=== PATIENT | female | born 1965 | race Caucasian/White ===

== ENCOUNTER 2020-07-29 22:37 | Inpatient (IN) ==
[2020-07-29] MEDS ORDERED: SODIUM CHLORIDE 0.9% 1000ML 1,000 ML IV ONE (22:44)
[2020-07-29] MEDS ORDERED: ONDANSETRON INJ 2 MG/ML 2 ML VIAL IV STA (22:55)
--- NOTE | 2020-07-29 22:55 | Emergency Department Note ---
Impression & Plan Acute pancreatitis, Transaminitis ED Provider Note NAME: DANIEL HURLEY AGE: 55 SEX: F : 1965 ARRIVES VIA: Walk-In INFORMANT: patient, ED PROVIDER(S): Rodrigo Roman MD Chief Complaint: Abdominal pain HPI: Patient does present with concern for abdominal pain that she describes in the epigastric region and is sharp with occasional posterior rib pain. Patient states that has been ongoing since 10:00 this morning. Patient states it has been constant. Patient states that she has had some associated chest tightness but denies any fevers chills or shortness of breath. The patient denies any lower extremity edema, DVT or PE. No prior history of heart or lung disease. The patient does occasionally use alcohol and occasionally uses tobacco. None recently. The patient states that she has had a prior appendectomy and cholecystectomy. The patient states that her liver function tests were recently changed did have a recent sonogram that was negative. Patient does not follow with GI at all. The patient denies any nausea vomiting or diaphoresis. Patient states that she had a bowel movement yesterday is passing gas and this is normal for her. The patient denies any blood in the urine or stool. Patient denies any dysuria. ROS: See HPI for pertinent positives and negatives. A total of 10 systems were reviewed and otherwise negative. Past medical history: See below Surgical history: See below Social history: See below Physical Exam: GENERAL: Wearing a mask. NAD, non-toxic. EYE EXAM: Normal conjunctiva. PERRL, no anisocoria and EOM's grossly intact w/o pain. NECK: Supple, no nuchal rigidity, no adenopathy, non-tender. No signs of meningismus. LUNGS: Clear to auscultation. Normal chest wall mechanics. HEART: NSR, no MRG. ABDOMEN: Abdomen soft, upper abdominal pain in the epigastric region, no lower abdominal pain, normo-active bowel sounds, no masses, no rebound or guarding. BACK: No CVA TTP. SKIN: No rashes and no bruising. UPPER EXTREMITIES: Upper extremities are grossly normal. LOWER EXTREMITIES: Grossly normal, no edema. Negative Homans' sign bilaterally. NEURO EXAM: A&O x3, cranial nerves II-XII grossly intact, normal speech, moves all 4 extremities on command w/o issue. Differential diagnoses: Appendicitis, ovarian cyst, ovarian torsion, ectopic , TOA, PID, infections, diverticulitis, UTI, obstruction, mesenteric ischemia, aortic pathology, inflammatory bowel disease, renal colic, PUD, pancreatitis, biliary pathology, hernia, volvulus, constipation, as well as other pathologies. Course: Patient was seen and evaluated the bedside. Full history physical exam was performed. EKG: Indication: Epigastric pain Normal sinus rhythm, rate of 65, normal intervals, left axis deviation. Imaging Studies: Radiology results as stated below per my review in the radiologist's interpretation: CT abdomen pelvis with contrast: Moderate peripancreatic fat stranding. Consistent with acute pancreatitis. No discrete fluid collection. Cholecystectomy with mild intra and extrahepatic biliary dilation may reflect postcholecystectomy changes versus common bile duct obstruction. Subtle density within the distal common bile duct may be stone anamika suni artifact correlate and consider MRCP to assess for choledocholithiasis. No obvious pancreatic ductal dilatation. Colonic diverticulosis. Subcentimeter left renal low-density lesion. Splenic calcified granulomas. Small low-density lesion in the uterine fundus. Possible fibroid. Mild atherosclerotic calcifications of the aorta, iliac arteries. Cardiac monitoring: An order was placed for continuous cardiac monitoring. The monitor shows a rate of 70 with sinus rhythm. MDM: Patient did present with concern for epigastric pain and occasional chest tightness. Blood work is obtained along with EKG troponin CT abdomen pelvis. Patient has had numerous abdominal surgeries but has had a recent bowel movement. No blood in urine or stool. Patient has a normal white count and hemoglobin. The patient's kidney function is unremarkable. The patient does have transaminitis and is sure she had hyperbilirubinemia and. Lipase is elevated. Troponin undetectable. EKG nonischemic. The patient is already had a cholecystectomy. The patient may benefit from MRCP. I did speak with the on-call hospitalist Dr. Waters. The patient was admitted to the medicine service. The patient was ordered additional pain medication maintenance IV fluids and nausea medication. Past Med/Surg History Medical History (Updated 07/30/20 @ 00:59 by Rodrigo Roman MD) Anxiety HTN (hypertension) Surgical History H/O prior ablation treatment History of appendectomy History of back surgery History of cholecystectomy Family History Sister Breast cancer Father Colorectal cancer Diabetes Lung cancer Myocardial infarction Mother Diabetes Hypertension Denies family history of Ovarian cancer Prostate cancer Social History Smoking Status: Current some day smoker Hx Alcohol Use: Yes Hx Substance Use: No Preferred Language: Maori Visual Impairment: No Limitations Hearing Ability: Normal marital status: Single Current Living Situation: Significant Other current occupational status: employed Feels Safe at Home: Yes Childhood Exposure to Second-Hand Smoke: Yes Dental Care, Regularly: Yes Physical Activity Frequency: 3-4 Times per Week Seatbelt Use: always Sunscreen Use: No Allergies Allergies Allergy/AdvReac Type Severity Reaction Status Date / Time aspirin [From Yasmin-[place]] Allergy Mild Rash Verified 07/29/20 23:10 citric acid Allergy Mild Rash Verified 07/29/20 23:10 [From Yasmin-[place]] sodium bicarbonate Allergy Mild Rash Verified 07/29/20 23:10 [From Yasmin-[place]] codeine AdvReac Severe PROJECTILE Verified 07/29/20 23:10 VOMITING sertraline [From Zoloft] AdvReac Intermediate PANIC Verified 07/29/20 23:10 ATTACKS Home Meds Home Medications Medication Instructions Recorded Confirmed cholecalciferol (vitamin D3) 250 mcg PO Q OTHER DAY 07/29/20 07/29/20 [Vitamin D3] conj estrog-medroxyprogest jag 1 tab PO DAILY 07/29/20 07/29/20 [Prempro] multivitamin 1 tab PO DAILY 07/29/20 07/29/20 Previous Rx's Medication Instructions Recorded esomeprazole magnesium 40 mg 40 mg PO DAILY #30 cap 04/29/20 capsule,delayed release hydrochlorothiazide 25 mg tablet 25 mg PO DAILY #30 tab 05/26/20 estradiol 0.045 mg-levonorgestrel 1 patch TRANSDERMAL .COMPLEX #4 ea 06/30/20 0.015 mg/24hr weekly transderm patch Results & Data (ED) Vital Signs Vital Signs - 24 hr 07/29/20 22:39 07/29/20 22:55 07/29/20 23:00 Temperature 36.1 C L Temperature Source Temporal Artery Scan Pulse Rate 70 62 56 L Pulse Rate [Apical] Pulse Rate from SpO2 Sensor 61 57 L Pulse Rhythm [Apical] Pulse Strength [Apical] Respiratory Rate 16 17 18 Respiratory Effort / Characteristics Non-Labored Spontaneous Respiratory Depth Normal Respiratory Pattern Regular Blood Pressure 186/101 H Blood Pressure [Right Arm] Blood Pressure Mean 129 Blood Pressure Mean [Right Arm] Blood Pressure Position Sitting Pulse Oximetry 96 95 96 Oxygen Delivery Method Room Air Room Air Sepsis Recent Fever Within 48 Hours No Sepsis New/Unexplained Change in Mental Status No Sepsis Action Taken by Nursing No Action Required 07/29/20 23:15 07/29/20 23:30 07/29/20 23:32 Temperature Temperature Source Pulse Rate 60 55 L 56 L Pulse Rate [Apical] Pulse Rate from SpO2 Sensor 59 L 54 L 57 L Pulse Rhythm [Apical] Pulse Strength [Apical] Respiratory Rate 18 17 17 Respiratory Effort / Characteristics Respiratory Depth Respiratory Pattern Blood Pressure 163/100 H Blood Pressure [Right Arm] Blood Pressure Mean 121 Blood Pressure Mean [Right Arm] Blood Pressure Position Pulse Oximetry 95 91 95 Oxygen Delivery Method Sepsis Recent Fever Within 48 Hours Sepsis New/Unexplained Change in Mental Status Sepsis Action Taken by Nursing 07/29/20 23:34 07/29/20 23:35 07/29/20 23:45 Temperature Temperature Source Pulse Rate 52 L Pulse Rate [Apical] 56 L Pulse Rate from SpO2 Sensor 52 L Pulse Rhythm [Apical] Regular Pulse Strength [Apical] Normal Respiratory Rate 18 18 Respiratory Effort / Characteristics Non-Labored Spontaneous Respiratory Depth Normal Respiratory Pattern Blood Pressure Blood Pressure [Right Arm] 163/100 H Blood Pressure Mean Blood Pressure Mean [Right Arm] 121 Blood Pressure Position Pulse Oximetry 96 96 91 Oxygen Delivery Method Room Air Room Air Sepsis Recent Fever Within 48 Hours Sepsis New/Unexplained Change in Mental Status Sepsis Action Taken by Nursing 07/30/20 00:13 07/30/20 00:15 Temperature Temperature Source Pulse Rate 56 L 52 L Pulse Rate [Apical] Pulse Rate from SpO2 Sensor 57 L 53 L Pulse Rhythm [Apical] Pulse Strength [Apical] Respiratory Rate 13 15 Respiratory Effort / Characteristics Respiratory Depth Respiratory Pattern Blood Pressure 180/110 H Blood Pressure [Right Arm] Blood Pressure Mean 133 Blood Pressure Mean [Right Arm] Blood Pressure Position Pulse Oximetry 98 96 Oxygen Delivery Method Sepsis Recent Fever Within 48 Hours Sepsis New/Unexplained Change in Mental Status Sepsis Action Taken by Detention Medications Current Medication List: was personally reviewed by me Laboratory Data Attestation: I reviewed the patient's lab results. Result diagrams: 07/29/20 22:57 07/29/20 22:57 Lab Results 07/29/20 07/29/20 07/29/20 Range/Units 22:57 22:57 23:04 WBC 8.90 (4.8-10.8) K/uL RBC 4.51 (4.2-5.4) M/uL Hgb 15.5 (12.0-16.0) g/dL POC Hgb 16.3 H (12.0-16.0) g/dl Hct 43.8 (37-47) % POC Hct 48 H (37-47) % MCV 97.1 (80-100) fL MCH 34.4 H (25-34) pg MCHC 35.4 (32-36) g/dL RDW Std Deviation 47.3 H (36.4-46.3) fL RDW Coeff of [place] 13.2 (11.5-14.5) % Plt Count 348 (130-400) K/uL MPV 10.0 (7.4-10.4) fL Immature Gran % (Auto) 0.2 % Neut % (Auto) 72.5 % Lymph % (Auto) 18.4 % [place] % (Auto) 7.6 % Eos % (Auto) 1.0 % Baso % (Auto) 0.3 % Neut # (Auto) 6.44 (1.4-6.5) K/uL Lymph # (Auto) 1.64 (1.2-3.4) K/uL [place] # (Auto) 0.68 H (0.11-0.59) K/uL Eos # (Auto) 0.09 (0-0.5) K/uL Baso # (Auto) 0.03 (0-0.2) K/uL Immature Gran # (Auto) 0.02 (0.00-0.02) K/uL POC Sodium 136 (135-144) mmol/L Sodium 136 (136-145) mmol/L POC Potassium 4.1 (3.3-5.0) mmol/L Potassium 4.1 (3.5-5.1) mmol/L POC Chloride 102 (101-112) mmol/L Chloride 104 (98-107) mmol/L Carbon Dioxide 24 (21-32) mmol/L POC Total CO2 24 (24-31) mmol/L Anion Gap 7.0 (3-11) POC Anion Gap 14.0 L (16-25) mmol/L POC BUN 19 H (7-18) mg/dl BUN 18 (7-18) mg/dl Creatinine 1.05 (0.6-1.2) mg/dl POC Creatinine 0.9 (0.6-1.3) mg/dl Est Cr Clr Drug Dosing 58.6 ml/min Est GFR ( Amer) 69.2 Est GFR (Non-Af Amer) 59.7 BUN/Creatinine Ratio 17.0 (10-20) Glucose 121 H (70-99) mg/dl POC Glucose (other) 128 H (70-99) mg/dl Calcium 9.4 (8.5-10.1) mg/dl POC Ioniz Calcium Abigail 1.20 (1.12-1.32) mmol/l Total Bilirubin 3.4 H (0.2-1) mg/dl AST 488 H (15-37) U/L ALT 789 H (12-78) U/L Alkaline Phosphatase 504 H (45-117) U/L Troponin I < 0.015 (0-0.045) ng/ml Total Protein 7.5 (6.4-8.2) gm/dl Albumin 3.7 (3.4-5.0) gm/dl Globulin 3.8 (2.5-4.0) gm/dl Albumin/Globulin Ratio 1.0 (0.9-2) Lipase 52474 H (73-393) U/L Administered Medications Discontinued Medications Fentanyl Citrate (Fentanyl Citrate 100 Mcg/2 Ml Vial) 50 mcg IV NOW STA Stop: 07/29/20 22:57 Last Admin: 07/29/20 23:39 Dose: 50 mcg Documented by: [id number] Sodium Chloride (Nss 1000ml) 1,000 mls @ 999 mls/hr IV .Q1H1M ONE Stop: 07/29/20 23:44 Last Infusion: 07/30/20 00:36 Dose: 0 mls/hr Documented by: [id number] Admin: 07/29/20 23:41 Dose: 999 mls/hr Documented by: [id number] Ioversol (Ioversol 100ml) 90 ml IV ONCE ONE Stop: 07/30/20 00:00 Last Admin: 07/29/20 23:59 Dose: 90 ml Documented by: [id number] Ondansetron HCl (Ondansetron Inj 2 Mg/Ml 2 Ml Vial) 4 mg IV NOW STA Stop: 07/29/20 22:56 Last Admin: 07/29/20 23:40 Dose: 4 mg Documented by: [id number] Discharge Plan Visit Data Chief Complaint: Chest Pain Stated Complaint: abd pain, chest pain ED Provider: Rodrigo Roman Discharge Problem: Acute pancreatitis, Transaminitis Forms Stand Alone Forms: [facility] [employer] Prescriptions Prescriptions: No Action hydrochlorothiazide 25 mg tablet 25 mg PO DAILY Qty: 30 RF: 5 [place] Pro 0.045-0.015 mg/24 hr patch weekly 1 patch transdermal .COMPLEX Qty: 4 RF: 12 esomeprazole magnesium [Nexium] 40 mg capsule,delayed release(DR/EC) 40 mg PO DAILY Qty: 30 RF: 2 multivitamin Tablet 1 tab PO DAILY RF: 0 Prempro 0.625-2.5 mg tablet 1 tab PO DAILY RF: 0 cholecalciferol (vitamin D3) [Vitamin D3] 125 mcg (5,000 unit) Tablet 250 mcg PO Q OTHER DAY RF: 0 Discharge Problem: Acute pancreatitis Qualifiers: Pancreatitis type: unspecified pancreatitis type Acute pancreatitis comp lication: unspecified Qualified Code(s): K85.90 - Acute pancreatitis without necrosis or infection, unspecified
[2020-07-29] MEDS ORDERED: fentaNYL citrate 100 MCG/2 ML VIAL IV STA (22:56)
[2020-07-29 23:07] LABS: Basophils # (auto) 0.03 K/uL (0-0.2); Basophils % (auto) 0.3 %; Eosinophils # (auto) 0.09 K/uL (0-0.5); Hematocrit (blood only) 43.8 % (37-47); Hemoglobin 15.5 g/dL (12.0-16.0); Immature Granulocytes # (auto) 0.02 K/uL (0.00-0.02); Immature Granulocytes % (auto) 0.2 %; Lymphocytes # (auto) 1.64 K/uL (1.2-3.4); Lymphocytes % (auto) 18.4 %; Mean Corpuscular Hemoglobin 34.4 pg (25-34); Mean Corpuscular Hgb Conc 35.4 g/dL (32-36); Mean Corpuscular Volume 97.1 fL (80-100); Monocytes # (auto) 0.68 K/uL (0.11-0.59); Monocytes % (auto) 7.6 %; Neutrophils # (auto) 6.44 K/uL (1.4-6.5); Neutrophils % (auto) 72.5 %; Platelet Count 348 K/uL (130-400); RDW Coefficient of Variation 13.2 % (11.5-14.5); RDW Standard Deviation 47.3 fL (36.4-46.3); Red Blood Count 4.51 M/uL (4.2-5.4)
[2020-07-29 23:17] LABS: iSTAT Creatinine 0.9 mg/dl (0.6-1.3); iSTAT Hemoglobin 16.3 g/dl (12.0-16.0); iSTAT Ionized Calcium 1.2 mmol/l (1.12-1.32); iSTAT Potassium 4.1 mmol/L (3.3-5.0)
[2020-07-29 23:36] LABS: Alanine Aminotransferase 789 U/L (12-78); Albumin Level 3.7 gm/dl (3.4-5.0); Aspartate Aminotransferase 488 U/L (15-37); Blood Urea Nitrogen 18 mg/dl (7-18); Calcium 9.4 mg/dl (8.5-10.1); Carbon Dioxide 24 mmol/L (21-32); Chloride 104 mmol/L (98-107); Creatinine Clr Calc Pharmacy 58.6 ml/min; Est GFR (African American) 69.2; Est GFR (Non-African American) 59.7; Glucose 121 mg/dl (70-99); Potassium 4.1 mmol/L (3.5-5.1); Sodium 136 mmol/L (136-145)
[2020-07-29 23:51] LABS: Alkaline Phosphatase 504 U/L (45-117); Bilirubin,Total 3.4 mg/dl (0.2-1); Globulin 3.8 gm/dl (2.5-4.0); Total Protein 7.5 gm/dl (6.4-8.2); Troponin I < 0.015 ng/ml (0-0.045)
[2020-07-29] MEDS ORDERED: OPTIRAY 320 100ml IV ONE (23:59)
[2020-07-30 00:26] LABS: Lipase 38874 U/L (73-393)
[2020-07-30] MEDS ORDERED: ONDANSETRON INJ 2 MG/ML 2 ML VIAL IV STA (00:33)
[2020-07-30] MEDS ORDERED: fentaNYL citrate 100 MCG/2 ML VIAL IV STA (00:33)
[2020-07-30] MEDS: SODIUM CHLORIDE 0.9% 1000ML 1,000 ML IV SCH ×6 (00:51→19:53)
[2020-07-30 01:51] LABS: Appearance Urine Clear (Clear); Bacteria Urine Automated 4+ (Negative); Bilirubin Urine Negative (Negative); Blood Urine Negative (Negative); Cast Urine Automated 0 /lpf (0-5); Color Urine Dark Yellow; Epithelial Cell Urine Auto 20-30 /lpf (0-5); Glucose Urine UA Negative (Negative); Ketones Urine Negative (Negative); Leukocyte Esterase Urine Negative (Negative); Nitrite Urine Positive (Negative); Protein Urine Negative (Negative); RBC Urine Automated 0-4 /hpf (0-4); Specific Gravity Urine 1.015 (1.000-1.030); Urobilinogen Urine Negative (Negative); pH Urine 5.5 (4.5-7.5)
[2020-07-30] MEDS ORDERED: HYDROmorphone INJ 0.5 MG/0.5 ML SYR IV STA (02:15)
--- NOTE | 2020-07-30 02:49 | History & Physical Report ---
Date of Service July 30, 2020 Assessment & Plan Admission and Anticipated Discharge Date Admission Date: 55 yo F w/ past medical hx. of HTN, and s/p cholecystectomy presents with severe upper abdominal pain found to have acute pancreatitis w/ lipase of 38,874 likely 2/2 gallstone with findings corroborating this on CT imaging and liver enzyme elevated to AST 488 ALT 789 along with bilirubin. Afebrile, no white count, no signs of complications on CT. Alcohol could be the cause although given patients reported intake this seems less likely. - admit med/sug - tele - NPO, continue fluid at 125/hr - Ceftriaxone 1g Q24H started given obstruction for GI source - MRCP ordered - GI consulted for potential ERCP - Dilaudid for pain control w/ 0.5 Q 30min for severe pain - ordered lipid profile HTN, elevated as high as systolic 200's in ED likely 2/2 pain - continue home HCTZ - control pain as above Elevated glucose with no prior history of DM - AM A1c Code: full COVID: negative 07/30 Diet: NPO DVT: SCD's given potential procedure tomorrow History of Present Illness Chief Complaint: abdominal pain Primary Care Provider: Chelsea Montelongo MD Ludy Solano is a 55-year-old female presenting with one day of severe abdominal pain. She was previously healthy and at 10AM this morning she developed constant progressively worsening 8-10/10 central abdominal pain that radiated to the back. The pain is described as gas like with spasms in her chest. she finally decided to come into the hospital when it was not improving and seemed to worsen when she tried to lay down for bed. She did vomit once at 8:30 PM prior to coming to the ER. She has previously had her gallbladder removed. No recent illness. No recent travel. No prior trauma. No pet scorpions, she has a dog and a horse at home. She had an episode in December with similar pain, wendy colored stool, and itchy skin that she saw her PCP for and had elevated liver enzymes at that time w/o elevation in her bilirubin. This episode resolved after a few days. She drinks 2 shots of fireball per week most recently on Monday night after a tough day at work. Never more than 2 shots and no more frequently lately. She does currently smoke 2 cigarettes a day and has been cutting back. 8 year smoking history. ED course: 2L fluid, current rate 125, Fentanyl for pain, Zofran for nausea Allergies Allergy/AdvReac Type Severity Reaction Status Date / Time aspirin [From Yasmin-[place]] Allergy Mild Rash Verified 07/29/20 23:10 citric acid Allergy Mild Rash Verified 07/29/20 23:10 [From Yasmin-[place]] sodium bicarbonate Allergy Mild Rash Verified 07/29/20 23:10 [From Yasmin-[place]] codeine AdvReac Severe PROJECTILE Verified 07/29/20 23:10 VOMITING sertraline [From Zoloft] AdvReac Intermediate PANIC Verified 07/29/20 23:10 ATTACKS Home Medications Medication Instructions Recorded Confirmed Type esomeprazole magnesium 40 mg 40 mg PO DAILY #30 cap 04/29/20 07/29/20 Rx capsule,delayed release hydrochlorothiazide 25 mg tablet 25 mg PO DAILY #30 tab 05/26/20 07/29/20 Rx estradiol 0.045 mg-levonorgestrel 1 patch TRANSDERMAL .COMPLEX #4 ea 06/30/20 07/29/20 Rx 0.015 mg/24hr weekly transderm patch cholecalciferol (vitamin D3) 250 mcg PO Q OTHER DAY 07/29/20 07/29/20 History [Vitamin D3] conj estrog-medroxyprogest jag 1 tab PO DAILY 07/29/20 07/29/20 History [Prempro] multivitamin 1 tab PO DAILY 07/29/20 07/29/20 History Past Med/Surg History Medical History Anxiety HTN (hypertension) Surgical History H/O prior ablation treatment History of appendectomy History of back surgery History of cholecystectomy Family History Sister Breast cancer Father Colorectal cancer Diabetes Lung cancer Myocardial infarction Mother Diabetes Hypertension Denies family history of Ovarian cancer Prostate cancer Social History Smoking Status: Current some day smoker Do You Dip or Chew Tobacco: No; Hx Alcohol Use: Yes Alcohol type: hard liquor Hx Substance Use: No Preferred Language: Guatemalan Communication Ability: Effective Visual Impairment: No Limitations Hearing Ability: Normal 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 Beliefs That Will Affect Care: None marital status: Single Current Living Situation: Significant Other current occupational status: employed Other Information That Helps Us Care for You: No Feels Safe at Home: Yes Safety Concerns: Feels Safe At This Time Childhood Exposure to Second-Hand Smoke: Yes Dental Care, Regularly: Yes Physical Activity Frequency: 3-4 Times per Week Seatbelt Use: always Sunscreen Use: No Assistive Devices: None Review of Systems Review of Systems: Constitutional: denies fevers, night sweats, weight change not related to diet or exercise admits chills, nausea, vomiting Head: denies trauma, headache, vision changes Neuro: denies syncope Cardiac: admits chest pain, denies palpitations, leg edema Pulm: denies cough, shortness of breath GI: denies constipation, diarrhea or changes in stool color, consistency or frequency Physical Exam Constitutional: well nourished and + acute distress (tearful, in acute pain) Eyes: PERRL, conjunctivae normal, anicteric sclerae ENMT: external ear and nose normal, oropharynx normal Neck: normal visual inspection Respiratory: normal respiratory effort, lungs clear to auscultation Cardiovascular: RRR, no murmur, no edema Gastrointestinal (Abdomen): Soft, tender to palpation in the epigastric area decreased bowel sounds Musculoskeletal: no cyanosis or clubbing, extremities motor strength 5/5 Skin: no rashes, warm and dry Neurologic: awake; not confused Speech / Cognition: normal speech Psychiatric: Orientation: alert and cooperative Results & Data Results & Data ([facility]) Vital Signs (Past 12 Hours) Vital Signs Temp Pulse Pulse Resp BP BP Pulse Ox 07/30/20 02:30 141/80 H 96 07/30/20 02:20 203/116 H 97 07/30/20 02:15 97 07/30/20 02:01 65 15 219/145 H 95 07/30/20 02:00 54 L 14 96 07/30/20 01:45 54 L 23 97 07/30/20 01:35 57 L 12 179/115 H 97 07/30/20 01:30 52 L 18 197/125 H 94 07/30/20 01:15 56 L 14 94 07/30/20 01:00 53 L 15 207/121 H 92 07/30/20 00:45 55 L 16 96 07/30/20 00:30 57 L 16 212/115 H 97 07/30/20 00:15 52 L 15 96 07/30/20 00:13 56 L 13 180/110 H 98 07/29/20 23:45 52 L 18 91 07/29/20 23:35 96 07/29/20 23:34 56 L 18 163/100 H 96 07/29/20 23:32 56 L 17 163/100 H 95 07/29/20 23:30 55 L 17 91 07/29/20 23:15 60 18 95 07/29/20 23:00 56 L 18 96 07/29/20 22:55 62 17 95 07/29/20 22:39 36.1 C L 70 16 186/101 H 96 CBC Results Results Complete Blood Count Results: RBC 4.51 M/uL (4.2-5.4) 07/29/20 WBC 8.90 K/uL (4.8-10.8) 07/29/20 Hgb 15.5 g/dL (12.0-16.0) 07/29/20 Hct 43.8 % (37-47) 07/29/20 Plt Count 348 K/uL (130-400) 07/29/20 Chemistry (BMP) Results BMP Results: Sodium 136 mmol/L (136-145) 07/29/20 Potassium 4.1 mmol/L (3.5-5.1) 07/29/20 Chloride 104 mmol/L (98-107) 07/29/20 BUN 18 mg/dl (7-18) 07/29/20 Creatinine 1.05 mg/dl (0.6-1.2) 07/29/20 Glucose 121 mg/dl (70-99) H 07/29/20 Code Status & VTE Plan VTE Prophylaxis Plan VTE Prophylaxis will be ordered: Yes Supervising Physician Co-Signing Physician Notes Attending addendum: I have physically seen this patient, have supervised the medical residents activities, and agree with the H&P unless as otherwise noted. Assessment and Plan: Presumptive choledocholithiasis with pancreatitis- NPO Has received 2 L normal saline in the ED NSS + KCl 20 mEq at 100 mils per hour Ceftriaxone 2 g IV daily Dilaudid 0.5 mg IV every 3 hours as needed severe pain Zofran 4 mg IV every 6 hours as needed Famotidine 20 mg IV every 12 hours Order MRCP Consult gastroenterology Hypertension- Hold HCTZ Hydralazine 10 mg IV every 4 hours as needed for systolic blood pressure greater than 160 Remaining orders and notations as noted Resident Activity Tracking Resident Involvement: Resident Care Provided Care Provided: Adult [facility] Medicine
[2020-07-30] MEDS ORDERED: POLYETHYLENE (MIRALAX) 17 GM PACK PO PRN (04:04)
[2020-07-30] MEDS: HYDROmorphone INJ 0.5 MG/0.5 ML SYR IV PRN ×3 (05:05→11:37)
[2020-07-30] MEDS: cefTRIAXone SODIUM 2,000 MG in DEXTROSE 5% 50 ML IV SCH (06:02)
[2020-07-30 07:24] LABS: Chol HDL Ratio 4; Cholesterol 214 mg/dl (0-200); HDL Cholesterol 50 mg/dl; LDL Cholesterol Calculated 143 mg/dl; Triglycerides 105 mg/dl (0-150); VLDL Cholesterol 21 mg/dl
[2020-07-30 07:41] LABS: Estimated Average Glucose 123 mg/dl; Hemoglobin A1C 5.9 % (4.5-5.6)
--- NOTE | 2020-07-30 07:42 | CT Scan Report ---
ABDOMEN AND PELVIS CT WITH IV CONTRAST CT DOSE: 635.20 mGy.cm HISTORY: Acute generalized abdominal pain ab pain TECHNIQUE: Multiaxial CT images of the abdomen and pelvis were performed following the IV administrat ion of 90 cc of Optiray 320, A dose lowering technique was utilized adhering to the principles of AL LATA. COMPARISON STUDY: MRCP of same day, right upper quadrant abdominal ultrasound 05/01/2020 FINDINGS: Imaged inferior cardiac chambers are unremarkable. Mild bibasilar groundglass densities sug gest atelectasis. There is no pneumatosis or pneumoperitoneum. Calcified granulomata of the spleen. U nremarkable adrenal glands. There is moderate interstitial and peripancreatic edema/fluid. No acute p eripancreatic fluid collection, pancreatic necrosis or ductal dilation. No vascular occlusion identif ied. Cholecystectomy with moderate intrahepatic and extrahepatic biliary ductal dilation. The common bile duct measures up to approximately 11 mm. No definite choledocholithiasis. Liver is otherwise unr emarkable. Subcentimeter cyst of the superior pole left kidney. No renal or ureteral calculi or obstructive urop athy. Unremarkable urinary bladder. There is a 2.5 cm centrally hypodense lesion of the uterine fundu s suggestive of a probable fibroid with central cystic degeneration. No adnexal mass lesions. Atheros clerosis of the aorta without aneurysm. No adenopathy. Mild circumferential wall thickening is noted involving the duodenum and proximal jejunum. No bowel obstruction. There is mild colonic diverticulosis. Appendectomy. Unremarkable soft tissues. Spondylit ic spurring of the spine. No acute fracture. IMPRESSION: 1. Moderate acute pancreatitis. No acute peripancreatic fluid collection, pancreatic necrosis or panc reatic ductal dilation. 2. Cholecystectomy with moderate intrahepatic and extrahepatic biliary ductal dilation. Please refer to MRCP study of same day for additional findings. 3. Wall thickening of the duodenum and proximal jejunum is likely reactive. 4. No bowel obstruction. 5. Fibroid uterus. 6. Additional findings as above. ACT 112: Negative or not required by law. The above report was generated using voice recognition software. It may contain grammatical, syntax o r spelling errors. Electronically signed by: Chapo Nieto M.D. 07/30/2020 7:40 AM
--- NOTE | 2020-07-30 07:47 | Magnetic Resonance Report ---
MR MRCP HISTORY: 55 years-old Female pancreatitis acute pancreatitis with cholecystectomy COMPARISON: CT abdomen and pelvis of same day TECHNIQUE: MRCP was obtained without the use of IV contrast according to institutional protocol FINDINGS: Clear lung bases. Spleen, liver and adrenal glands are unremarkable. Subcentimeter cyst of the superi or pole left kidney. No bowel obstruction. Mild wall thickening of the duodenum and proximal jejunum, likely reactive. Moderate interstitial and peripancreatic edema with trace perisplenic ascites. Small volume ascites t racks into the central mesentery. No pancreatic ductal dilation. Moderate intrahepatic and extrahepat ic biliary ductal dilation with cholecystectomy. The common bile duct measures up to 11 mm transverse ly. There are 2 filling defects present within the distal common bile duct, the distal focus measurin g 5 mm (for example please see images 20 and 21 of series 3). No evidence of pancreatic divisum. Stud y is motion degraded. IMPRESSION: 1. Moderate acute pancreatitis. 2. Cholecystectomy with moderate intrahepatic and extrahepatic biliary ductal dilation with choledoch olithiasis. ACT 112: Negative or not required by law. The above report was generated using voice recognition software. It may contain grammatical, syntax o r spelling errors. Electronically signed by: Chapo Nieto M.D. 07/30/2020 7:45 AM
[2020-07-30] MEDS ORDERED: hydroCHLOROthiazide 25 MG TAB PO SCH (09:00)
--- NOTE | 2020-07-30 09:15 | Gastrointestinal Consultation ---
Date of Consultation July 30, 2020 Assessment & Plan (1) Acute pancreatitis: 1. Increase LR to 250/hr. 2. Keep NPO except few ice chips for comfort and water with meds today. Present on Admission?: Yes (2) Choledocholithiasis: ERCP, by Dr. Moni Rizo, likely tomorrow - though exact timing dependent on OR availability and pt's continued clinical course today. Procedure explained in detail including risks. Pt would like to go forward with the procedure. Because chills present - please continue to cover cholangitis with broad antibiotics. Present on Admission?: Yes Supervising Physician Co-Signing Physician Notes I have seen and examined the patient and discussed the management with ENOC Valiente. GI consult for pain- workup thus far showing stones on mrcp and pancreatitis. Pain improving with pain medications and IV fluids. Pe - well nourished fm in nad, HEENT- no significant scleral icterus, Pulm- ctab, CV- rrr no mr, Abd - soft nt nd +bs Labs reviewed lipase elevation, lft elevation MRCP reviewed ERCP tomorrow, on empiric abx, hold blood thinners. History of Present Illness Reason for Consultation: We were asked to see this patient by Dr. Johnson as she likely needs ERCP, a service [facility] does not provide. Ms. Ludy Solano is a 55 yr old female with a hx of distant cholecystectomy, GERD who presented to the emergency department yesterday. She experienced the sudden onset of severe spasmy upper abdomen pain radiating to the back yesterday morning. She is also had itchy skin and chills. On arrival, LFTs were elevated, TB 3.4, AST 488, ALT 789, AP 504. MRCP suggested a dilated common bile duct with choledocholithiasis. She is awake alert oriented and hemodynamically stable. No leukocytosis (on ceftriaxone), but she does report having had chills. She tells me that her pain returns near the end of the analgesic dosing interval. She is being kept NPO. She denies having had any nausea vomiting or diarrhea with this episode. She recalls an episode of similar pain about 6 months ago during which time LFTs were elevated, pain resolved and ultrasound was normal. Attending Physician: Jimmy Gomez MD Allergies Allergy/AdvReac Type Severity Reaction Status Date / Time aspirin [From Yasmin-[place]] Allergy Mild Rash Verified 07/29/20 23:10 citric acid Allergy Mild Rash Verified 07/29/20 23:10 [From Yasmin-[place]] sodium bicarbonate Allergy Mild Rash Verified 07/29/20 23:10 [From Yasmin-[place]] codeine AdvReac Severe PROJECTILE Verified 07/29/20 23:10 VOMITING sertraline [From Zoloft] AdvReac Intermediate PANIC Verified 07/29/20 23:10 ATTACKS Home Medications Medication Instructions Recorded Confirmed Type esomeprazole magnesium 40 mg 40 mg PO DAILY #30 cap 04/29/20 07/29/20 Rx capsule,delayed release hydrochlorothiazide 25 mg tablet 25 mg PO DAILY #30 tab 05/26/20 07/29/20 Rx estradiol 0.045 mg-levonorgestrel 1 patch TRANSDERMAL .COMPLEX #4 ea 06/30/20 07/29/20 Rx 0.015 mg/24hr weekly transderm patch cholecalciferol (vitamin D3) 250 mcg PO Q OTHER DAY 07/29/20 07/29/20 History [Vitamin D3] conj estrog-medroxyprogest jag 1 tab PO DAILY 07/29/20 07/29/20 History [Prempro] multivitamin 1 tab PO DAILY 07/29/20 07/29/20 History Patient History Medical History Anxiety HTN (hypertension) Surgical History H/O prior ablation treatment History of appendectomy History of back surgery History of cholecystectomy Family History Sister Breast cancer Father Colorectal cancer Diabetes Lung cancer Myocardial infarction Mother Diabetes Hypertension Denies family history of Ovarian cancer Prostate cancer Social History Smoking Status: Current some day smoker Do You Dip or Chew Tobacco: No; Hx Alcohol Use: Yes Alcohol type: hard liquor Hx Substance Use: No Preferred Language: Tajik Communication Ability: Effective Visual Impairment: No Limitations Hearing Ability: Normal Screening Specialist Required: No Beliefs That Will Affect Care: None marital status: Single Current Living Situation: Significant Other current occupational status: employed Other Information That Helps Us Care for You: No Feels Safe at Home: Yes Safety Concerns: Feels Safe At This Time Childhood Exposure to Second-Hand Smoke: Yes Dental Care, Regularly: Yes Physical Activity Frequency: 3-4 Times per Week Seatbelt Use: always Sunscreen Use: No Assistive Devices: None Review of Systems Review of Systems: ROS: Gen: + chills; Denies weakness, fevers, weight loss Eyes: No eye redness, or pain, no recent vision changes Resp: No SOB, no cough Cardio: No palpitations/irregular beats, no chest pain GI: as per HPI otherwise normal : Denies pain on urination Skin: + generalized itching; no jaundice, no new rashes Physical Exam Constitutional: WD/WN, vitals as above Eyes: PERRL, conjunctivae normal, anicteric sclerae ENMT: external ear and nose normal, oropharynx normal Neck: trachea midline, no thyromegaly Respiratory: normal respiratory effort, lungs clear to auscultation Cardiovascular: RRR, no murmur, no edema Gastrointestinal (Abdomen): Inspection/Auscultation: abdomen normal to inspection and + hypoactive bowel sounds; abdomen not distended Percussion/Palpation: + abdomen tender (epigastric) and abdomen soft Skin: no rashes, warm and dry Neurologic: PERRL, EOMI, accommodation nl, no face palsy, no dysarthria Psychiatric: A+Ox3, euthymic affect Lymphatic: no cervical or axillary lymphadenopathy Results & Data ([facility]) Vital Signs (Past 12 Hours) Vital Signs Temp Pulse Pulse Resp BP BP Pulse Ox 07/30/20 07:38 36.5 C 51 L 18 143/89 H 97 07/30/20 03:48 36.3 C L 59 L 17 175/109 H 95 07/30/20 03:34 58 L 20 141/80 H 96 07/30/20 02:30 141/80 H 96 07/30/20 02:20 203/116 H 97 07/30/20 02:15 97 07/30/20 02:01 65 15 219/145 H 95 07/30/20 02:00 54 L 14 96 07/30/20 01:45 54 L 23 97 07/30/20 01:35 57 L 12 179/115 H 97 07/30/20 01:30 52 L 18 197/125 H 94 07/30/20 01:15 56 L 14 94 07/30/20 01:00 53 L 15 207/121 H 92 07/30/20 00:45 55 L 16 96 07/30/20 00:30 57 L 16 212/115 H 97 07/30/20 00:15 52 L 15 96 07/30/20 00:13 56 L 13 180/110 H 98 07/29/20 23:45 52 L 18 91 07/29/20 23:35 96 07/29/20 23:34 56 L 18 163/100 H 96 07/29/20 23:32 56 L 17 163/100 H 95 07/29/20 23:30 55 L 17 91 07/29/20 23:15 60 18 95 07/29/20 23:00 56 L 18 96 07/29/20 22:55 62 17 95 07/29/20 22:39 36.1 C L 70 16 186/101 H 96 Laboratory Results WBC 8.9, Hb 16, Hct 48, Plts 348, Na 136, K 4.1, BUN 18, Cr 1.05, Glucose 128, T B 3.4, AST 488, ALT 79, Alk Phos 504. Diagnostic Findings CT 07/29/20 with IV contrast: 1. Moderate acute pancreatitis. No acute peripancreatic fluid collection, pancreatic necrosis or pancreatic ductal dilation. 2. Cholecystectomy with moderate intrahepatic and extrahepatic biliary ductal dilation. Please refer to MRCP study of same day for additional findings. 3. Wall thickening of the duodenum and proximal jejunum is likely reactive. 4. No bowel obstruction. 5. Fibroid uterus. 6. Additional findings as above. MRCP 07/30/20: 1. Moderate acute pancreatitis. 2. Cholecystectomy with moderate intrahepatic and extrahepatic biliary ductal dilation with choledocholithiasis. (1) Acute pancreatitis Acute pancreatitis complication: unspecified Pancreatitis type: unspecified pancreatitis type Qualified Code(s): K85.90 - Acute pancreatitis without necrosis or infection, unspecified
[2020-07-30] MEDS: PANTOprazole 40 MG in SYRINGE 0 ML IV SCH ×2 (09:32→22:00)
[2020-07-30] MEDS: ENOXAPARIN INJ 40 MG/0.4 ML SYR SQ SCH (10:12)
--- NOTE | 2020-07-30 13:32 | Hospitalist Progress Note ---
Date of Service July 30, 2020 Assessment & Plan (1) Acute pancreatitis: Appears to be due to choledocholithiasis. Currently n.p.o. with IV fluids. Serial lab studies. GI prophylaxis with IV Protonix Present on Admission?: Yes (2) Choledocholithiasis: The patient is status post cholecystectomy. Common bile duct dilatation from suspected stones noted on MRCP. GI consultation appreciated. ERCP dylan July 31 Present on Admission?: Yes (3) Transaminitis: Due to acute pancreatitis. Will follow Present on Admission?: Yes (4) History of cholecystectomy: Aware GI prophylaxis: IV Protonix DVT prophylaxis: Lovenox subcu Disposition: Eventual discharge to home Admission and Anticipated Discharge Date Admission Date: July 30, 2020 Subjective Resting comfortably. She remains n.p.o. Lipase is markedly elevated. Gastroenterology consultation appreciated. ERCP will be done tomorrow. IV f luids have been uptitrated. MRCP consistent with choledocholithiasis and dilated common bile duct. She remains on IV Rocephin. Urine culture pending for suspected UTI present on admission. Review of Systems Review of Systems: All systems reviewed & are unremarkable except as noted in Subjective Physical Exam Physical Exam: General-alert and oriented x3, no fevers, no chills HEENT-head atraumatic and normocephalic, TMs intact bilaterally, pupils equal and reactive to light, extraocular muscles intact Neck-no lymphadenopathy or thyromegaly, trachea midline Chest-clear to auscultation percussion. No rales wheezing or rhonchi Cardiac-regular rate and rhythm, normal S1 and S2, no murmurs Abdomen-normal bowel sounds, no hepatosplenomegaly. Mild epigastric tenderness. No rebound or guarding Extremities-no cyanosis, clubbing, or edema Neuro-cranial nerves II through XII intact, motor and sensory function within normal limits, strength symmetrical 5/5, no focal deficits Psych-normal affect, normal mood Results & Data Results & Data ([facility]) Vital Signs (Past 12 Hours) Vital Signs Temp Pulse Pulse Resp BP BP Pulse Ox 07/30/20 11:43 36.5 C 59 L 16 96 07/30/20 09:00 54 L 07/30/20 07:38 36.5 C 51 L 18 143/89 H 97 07/30/20 03:48 36.3 C L 59 L 17 175/109 H 95 07/30/20 03:34 58 L 20 141/80 H 96 07/30/20 02:30 141/80 H 96 07/30/20 02:20 203/116 H 97 07/30/20 02:15 97 07/30/20 02:01 65 15 219/145 H 95 07/30/20 02:00 54 L 14 96 07/30/20 01:45 54 L 23 97 07/30/20 01:35 57 L 12 179/115 H 97 07/30/20 01:30 52 L 18 197/125 H 94 Laboratory Results 07/29/20 22:57 07/29/20 22:57 PG Care Time/CCT Total # of Minutes Spent Total Time Spent with Patient: Total time spent is greater than 50% in coordination of care (as documented) at patient's floor/unit and/or counseling patient: Coding Level of Care Code 61722 Subseq Hosp Care Lvl 3 Diagnoses Acute pancreatitis K85.90 Acute pancreatitis complication: unspecified Pancreatitis type: unspecified pancreatitis type Choledocholithiasis K80.50 Transaminitis R74.01 History of cholecystectomy Z90.49 (1) Acute pancreatitis Acute pancreatitis complication: unspecified Pancreatitis type: unspecified pancreatitis type Qualified Code(s): K85.90 - Acute pancreatitis without necrosis or infection, unspecified
[2020-07-30] MEDS: HYDROmorphone INJ 1 MG/ML SYRINGE IV PRN ×2 (15:04→21:30)
[2020-07-30] MEDS ORDERED: IBUPROFEN 200 MG TAB PO PRN (15:10)
--- NOTE | 2020-07-30 15:41 | Anesthesiology Consultation ---
Date of Service July 30, 2020 Assessment & Plan (1) Encounter for pre-operative examination: Chart Review Chart Review: Acceptable Risk for Surgery and Patient NOT seen in Pre Admission Testing Consults Requested none History Surgery Operation Date: 07/31/20 08:20 Proposed Procedures p Endoscopic Retrograde Cholangiopancreatogram - Moni Washburn DO Height/Weight Height: 5 ft Weight: 86.438 kg Allergies Allergy/AdvReac Type Severity Reaction Status Date / Time aspirin [From Yasmin-[place]] Allergy Mild Rash Verified 07/29/20 23:10 citric acid Allergy Mild Rash Verified 07/29/20 23:10 [From Yasmin-Gracey] sodium bicarbonate Allergy Mild Rash Verified 07/29/20 23:10 [From Yasmin-Gracey] codeine AdvReac Severe PROJECTILE Verified 07/29/20 23:10 VOMITING sertraline [From Zoloft] AdvReac Intermediate PANIC Verified 07/29/20 23:10 ATTACKS Medications Home Medications Medication Instructions Recorded Confirmed Last Taken esomeprazole magnesium 40 mg 40 mg PO DAILY #30 cap 04/29/20 07/29/20 07/29/20 capsule,delayed release hydrochlorothiazide 25 mg tablet 25 mg PO DAILY #30 tab 05/26/20 07/29/20 07/29/20 estradiol 0.045 mg-levonorgestrel 1 patch TRANSDERMAL .COMPLEX #4 ea 06/30/20 07/29/20 Unknown 0.015 mg/24hr weekly transderm patch cholecalciferol (vitamin D3) 250 mcg PO Q OTHER DAY 07/29/20 07/29/20 07/28/20 [Vitamin D3] conj estrog-medroxyprogest jag 1 tab PO DAILY 07/29/20 07/29/20 07/29/20 [Prempro] multivitamin 1 tab PO DAILY 07/29/20 07/29/20 07/29/20 Active Medications Generic Name Dose Route Start Last Admin Trade Name Freq PRN Reason Stop Dose Admin Enoxaparin Sodium 40 mg 07/30/20 09:00 07/30/20 10:12 Enoxaparin Inj 40 Mg/0.4 Ml Syr SQ 08/29/20 08:59 40 mg QAM MIGUEL Administration Hydromorphone HCl 1 mg 07/30/20 14:30 07/30/20 15:04 Hydromorphone Inj 1 Mg/Ml Syringe IV 08/13/20 04:03 1 mg Q3H PRN Administration Pain Sodium Chloride 1,000 mls @ 250 mls/hr 07/30/20 00:45 07/30/20 10:28 Nss 1000ml IV 08/29/20 00:44 250 mls/hr .Q4H MIGUEL Administration Ceftriaxone Sodium 2,000 mg/ 70 mls @ 100 mls/hr 07/30/20 06:00 07/30/20 06:53 Dextrose IV 08/09/20 05:59 Infused Q24H MIGUEL Infusion Protocol Pantoprazole Sodium 40 mg/ 10 mls @ 5 mls/min 07/30/20 09:00 07/30/20 09:32 Syringe IV 08/29/20 08:59 5 mls/min BID MIGUEL Administration Past Medical History Medical History Anxiety HTN (hypertension) Choledocholithiasis Past Family History Family History Sister Breast cancer Father Colorectal cancer Diabetes Lung cancer Myocardial infarction Mother Diabetes Hypertension Denies family history of Ovarian cancer Prostate cancer Past Surgical History Surgical History H/O prior ablation treatment History of appendectomy History of back surgery History of cholecystectomy Social History Smoking Status: Current some day smoker tobacco type: cigars Do You Dip or Chew Tobacco: No Hx Alcohol Use: Yes Alcohol type: hard liquor alcohol intake frequency: 0-2 drinks per day Hx Substance Use: No Physical Exam Vital Signs Last Vital Signs Temp 36.7 C 07/30/20 14:21 Pulse 67 07/30/20 15:34 Resp 94 H 07/30/20 14:21 BP 160/97 H 07/30/20 14:21 Pulse Ox 94 07/30/20 14:21 Testing Laboratory Results 07/29/20 22:57 07/29/20 22:57 Hemoglobin A1c 5.9 % (4.5-5.6) H 07/30/20 06:22 Urine Color Dark Yellow 07/30/20 00:15 Urine Appearance Clear (Clear) 07/30/20 00:15 Urine pH 5.5 (4.5-7.5) 07/30/20 00:15 Ur Specific [place] 1.015 (1.000-1.030) 07/30/20 00:15 Urine Protein Negative (Negative) 07/30/20 00:15 Urine Glucose (UA) Negative (Negative) 07/30/20 00:15 Urine Ketones Negative (Negative) 07/30/20 00:15 Urine Nitrite Positive (Negative) A 07/30/20 00:15 Ur Leukocyte Esterase Negative (Negative) 07/30/20 00:15 Urine WBC (Auto) 1-5 /hpf (0-5) 07/30/20 00:15 Urine RBC (Auto) 0-4 /hpf (0-4) 07/30/20 00:15 U Hyaline Cast (Auto) 0 /lpf (0-5) 07/30/20 00:15 U Epithel Cells (Auto) 20-30 /lpf (0-5) H 07/30/20 00:15 Urine Bacteria (Auto) 4+ (Negative) H 07/30/20 00:15 Electrocardiogram Date: 07/29/20 Findings: + NSR @ (65) Poor data quality, interpretation may be adversely affected Normal sinus rhythm Low voltage QRS Incomplete right bundle branch block Left anterior fascicular block Abnormal ECG No previous ECGs available
[2020-07-30] MEDS ORDERED: ONDANSETRON INJ 2 MG/ML 2 ML VIAL IV ONE (21:32)
--- NOTE | 2020-07-30 21:59 | Billing Data ---
Date of Service July 30, 2020 Coding Level of Care Code 63291 Initial Inpt Care Lvl 2
[2020-07-31] MEDS: SODIUM CHLORIDE 0.9% 1000ML 1,000 ML IV SCH ×5 (00:23→22:54)
[2020-07-31] MEDS: HYDROmorphone INJ 1 MG/ML SYRINGE IV PRN ×3 (04:34→22:26)
[2020-07-31] MEDS: cefTRIAXone SODIUM 2,000 MG in DEXTROSE 5% 50 ML IV SCH (05:32)
--- NOTE | 2020-07-31 06:06 | Electrocardiogram Report ---
Test Reason : Blood Pressure : / mmHG Vent. Rate : 065 BPM Atrial Rate : 065 BPM P-R Int : 142 ms QRS Dur : 096 ms QT Int : 430 ms P-R-T Axes : 048 -60 018 degrees QTc Int : 447 ms Poor data quality, interpretation may be adversely affected Normal sinus rhythm Low voltage QRS Incomplete right bundle branch block Left anterior fascicular block Abnormal ECG No previous ECGs available Confirmed by Shawn Quezada ([id number]) on 07/31/2020 6:05:59 AM Referred By: REFERRED SELF Confirmed By:Shawn Quezada
[2020-07-31 07:21] LABS: Eosinophils # (auto) 0.02 K/uL (0-0.5); Eosinophils % (auto) 0.3 %; Hematocrit (blood only) 36.2 % (37-47); Hemoglobin 12.5 g/dL (12.0-16.0); Immature Granulocytes # (auto) 0.02 K/uL (0.00-0.02); Immature Granulocytes % (auto) 0.3 %; Lymphocytes # (auto) 1.46 K/uL (1.2-3.4); Lymphocytes % (auto) 18.5 %; Mean Corpuscular Hgb Conc 34.5 g/dL (32-36); Mean Corpuscular Volume 98.4 fL (80-100); Mean Platelet Volume 10.1 fL (7.4-10.4); Monocytes # (auto) 0.69 K/uL (0.11-0.59); Monocytes % (auto) 8.7 %; Neutrophils # (auto) 5.71 K/uL (1.4-6.5); Neutrophils % (auto) 72.2 %; Platelet Count 253 K/uL (130-400); RDW Coefficient of Variation 13.4 % (11.5-14.5); RDW Standard Deviation 48.1 fL (36.4-46.3); Red Blood Count 3.68 M/uL (4.2-5.4)
[2020-07-31] MEDS ORDERED: ONDANSETRON INJ 2 MG/ML 2 ML VIAL ONE (07:32)
[2020-07-31] MEDS ORDERED: DEXAMETHASONE SOD INJ 4 MG/ML VIAL ONE (07:32)
[2020-07-31] MEDS ORDERED: LIDOCAINE HCL 2% 2 ML VIAL/AMP(20MG/ML) INFIL ONE (07:32)
[2020-07-31] MEDS ORDERED: fentaNYL citrate 100 MCG/2 ML VIAL ONE (07:32)
[2020-07-31] MEDS ORDERED: MIDAZOLAM HCL 1 MG/ML 2ML VIAL ONE (07:32)
[2020-07-31] MEDS ORDERED: PROPOFOL IV EMULSION 10 MG/ML 20 ML VIAL IV ONE (07:32)
[2020-07-31 07:49] LABS: Albumin Level 2.9 gm/dl (3.4-5.0); BUN Creatinine Ratio 14.7 (10-20); Calcium 8.2 mg/dl (8.5-10.1); Creatinine Clr Calc Pharmacy 102.7 ml/min; Est GFR (African American) 118.3; Est GFR (Non-African American) 102.1; Potassium 3.5 mmol/L (3.5-5.1)
[2020-07-31 07:51] LABS: Albumin Globulin Ratio 0.9 (0.9-2); Globulin 3.1 gm/dl (2.5-4.0)
[2020-07-31] MEDS ORDERED: ePHEDrine sulfate 50 MG/ML AMP IV PRN (08:12)
[2020-07-31] MEDS ORDERED: ATROPINE SULFATE 0.1 MG/ML 10ML SYR IV PRN (08:12)
[2020-07-31] MEDS ORDERED: fentaNYL citrate 100 MCG/2 ML VIAL IV PRN (08:12)
[2020-07-31] MEDS ORDERED: PROMETHAZINE HCL 12.5 MG in SODIUM CHLORIDE 0.9% 50 ML IV PRN (08:12)
[2020-07-31] MEDS ORDERED: INDOMETHACIN 50 MG SUPP PR ONE ×2 (08:18→08:20)
--- NOTE | 2020-07-31 08:18 | History & Physical Bridge Note ---
Date of Service July 31, 2020 History & Physical Bridge Note I have examined the patient, reviewed the History & Physical and in the interval since the performance of the History & Physical I have noted the following changes of clinical significance: no changes noted. The patient presents with a history of abdominal pain was found to have a significant elevation of her liver associated enzymes and an MRI which shows evidence of choledocholithiasis. We are planning for ERCP for biliary decompression today. We discussed the risks of the procedure to include bleeding, infection, perforation, failed biliary cannulation and need for follow-up studies.
[2020-07-31] MEDS ORDERED: ePHEDrine sulfate 50 MG/ML SYR ONE (08:54)
[2020-07-31] MEDS ORDERED: ROCURONIUM BROMIDE 10 MG/ML 5 ML VIAL IV ONE (08:59)
[2020-07-31] MEDS ORDERED: SUCCINYLCHOLINE CHLORIDE 20 MG/ML 10 ML VIAL IV ONE (08:59)
--- NOTE | 2020-07-31 09:15 | Post Operative Brief Note ---
Immediate Post Op Note v1 Date of Surgery July 31, 2020 Pre & Post Diagnosis Operation Date: 07/31/20 08:20 Pre-Op Diagnosis: Gallstones Post-Op Diagnosis: Gallstones I identified the patient and participated in the time-out.: Yes Procedure Operation Date: 07/31/20 08:20 Actual Procedures p Endoscopic Retrograde Cholangiopancreatogram(Not Applicable) - Moni Washburn DO Surgeon Moni Washburn DO Shower Maid none Estimated Blood Loss 0 Findings Consistent with Post-Op Diagnosis
--- NOTE | 2020-07-31 09:16 | Communication Note ---
Date of Service: July 31, 2020 The patient underwent ERCP today. She was found to have evidence of multiple stones within the common bile duct and mild cholangitis Recommendations Continue IV hydration today May have clear liquids Patient should complete a 14-day course of antibiotics Avoid nonsteroidals for 1 week Repeat ERCP for stent removal in 6 to 8 weeks
--- NOTE | 2020-07-31 09:22 | GI REPORT ---
Patient Name: Ludy Solano Procedure Date: 07/31/2020 8:24 AM Date of : 1965 Admit Type: Inpatient Age: 55 Gender: Female Attending MD: Moni Washburn DO Procedure: ERCP Providers: Moni Washburn DO Referring MD: Shama Brizuela M.d. Indications: Abdominal pain of suspected biliary origin, Abnormal MRCP Medicines: General Anesthesia Complications: No immediate complications. Estimated blood loss: Minimal. Estimated Blood Loss: Estimated blood loss was minimal. Procedure: Pre-Anesthesia Assessment: - Prior to the procedure, a History and Physical was performed, and patient medications, allergies and sensitivities were reviewed. The patient's tolerance of previous anesthesia was reviewed. - The risks and benefits of the procedure and the sedation options and risks were discussed with the patient. All questions were answered and informed consent was obtained. - Patient identification and proposed procedure were verified prior to the procedure by the physician, the nurse and the test pilot. The procedure was verified in the procedure room. - Pre-procedure physical examination revealed no contraindications to sedation. - ASA Grade Assessment: III - A patient with severe systemic disease. - After reviewing the risks and benefits, the patient was deemed in satisfactory condition to undergo the procedure. - The anesthesia plan was to use general anesthesia. - Immediately prior to administration of medications, the patient was re-assessed for adequacy to receive sedatives. - The heart rate, respiratory rate, oxygen saturations, blood pressure, adequacy of pulmonary ventilation, and response to care were monitored throughout the procedure. - The physical status of the patient was re-assessed after the procedure. After obtaining informed consent, the scope was passed under direct vision. Throughout the procedure, the patient's blood pressure, pulse, and oxygen saturations were monitored continuously. The scope was introduced through the mouth, and advanced to the duodenum and used to inject contrast into the bile duct. The ERCP was accomplished without difficulty. The patient tolerated the procedure well. Findings: A machine ii coremaker film of the abdomen was obtained. Surgical clips, consistent with a previous cholecystectomy, were seen in the area of the right upper quadrant of the abdomen. The esophagus was successfully intubated under direct vision without detailed examination of the pharynx, larynx, and associated structures, and upper GI tract. The upper GI tract was grossly normal. The major papilla contained an impacted stone and was notable for congestion and a small amount of pus. The bile duct was deeply cannulated with the short-nosed traction sphincterotome and 0.035 in acrobat 2 guidewire (a second wire was inserted to help pass the catheter into the upper biliary tree, the second wire was then removed and the exam completed with the 0.035 inch guidewire). Contrast was injected. I personally interpreted the bile duct images. Contrast extended to the entire biliary tree. A cholecystectomy had been performed. The main bile duct was diffusely dilated. The largest diameter was 10 mm. Biliary sphincterotomy was made with a monofilament Fusion OMNI sphincterotome using ERBE electrocautery. There was no post-sphincterotomy bleeding. To discover objects, the biliary tree was swept with a 15 mm balloon starting at the bifurcation. Three stones were removed. No stones remained. Pus was swept from the duct. One 10 Fr by 8 cm biliary stent with a single external flap and a single internal flap was placed 8 cm into the common bile duct. Bile flowed through the stent. The stent was in good position. The endoscope was withdrawn from the patient. Indomethacin 100 mg was given via suppository to decrease the risk of post-ERCP pancreatitis (PEP). Impression: - An impacted stone was seen in the major papilla. - The patient has had a cholecystectomy. - Choledocholithiasis was found. Complete removal was accomplished by biliary sphincterotomy and balloon extraction. - A biliary sphincterotomy was performed. - The biliary tree was swept and pus was found. - One biliary stent was placed into the common bile duct. - Indomethacin given to decrease risk of post-ERCP pancreatitis. Recommendation: - Avoid aspirin and nonsteroidal anti-inflammatory medicines for 1 week. - Clear liquid diet today. - Repeat ERCP in 6 weeks to remove stent. - Use broad spectrum antibiotics for 2 weeks. Moni Washburn D.O. Moni Washburn, 07/31/2020 9:22:27 AM This report has been signed electronically. Note Initiated On: 07/31/2020 8:24 AM Number of Addenda: 0 I attest to the content of the Intraoperative Record and orders documented therein, exceptions below {[id number]}
--- NOTE | 2020-07-31 09:29 | Fluoroscopy Report ---
[place] ERCP biliary ductal CLINICAL HISTORY: ERCP IN OR COMPARISON STUDY: MRCP dated 07/30/2020 FLUOROSCOPY TIME: 122 seconds. NUMBER OF FLUOROSCOPIC IMAGES: 12 FINDINGS: Fluoroscopic spot images were obtained during ERCP. There are postsurgical changes of a cho lecystectomy. Images demonstrate apparent performance of sphincterotomy. The duct was swept with a ba lloon catheter. Final images demonstrate placement of a biliary enteric stent. IMPRESSION: Fluoroscopic spot images obtained during ERCP with placement of a biliary enteric stent. ACT 112: Negative or not required by law. Electronically signed by: Brent Cannon M.D. 07/31/2020 9:27 AM
--- NOTE | 2020-07-31 09:36 | Anesthesiology Progress Note ---
Date of Service July 31, 2020 Anesthesia Post Procedure Vital Signs Vital Signs: Temp Pulse Pulse Pulse Resp BP Pulse Ox 07/31/20 09:35 61 16 148/85 H 96 07/31/20 09:25 64 16 142/82 H 95 07/31/20 09:15 36.0 C L 66 16 124/77 94 07/31/20 08:10 36.7 C 64 16 150/89 H 95 07/31/20 07:43 36.5 C 62 18 147/89 H 95 07/31/20 07:20 58 L 07/31/20 04:00 36.6 C 60 18 136/86 94 07/31/20 03:11 57 L 07/30/20 23:00 36.4 C L 63 18 151/92 H 95 07/30/20 19:43 36.8 C 70 18 133/78 92 07/30/20 15:34 67 07/30/20 14:21 36.7 C 64 94 H 160/97 H 94 07/30/20 14:12 65 07/30/20 13:43 124/80 07/30/20 11:43 36.5 C 59 L 16 96 Pain Intensity Lower Chest: Pain Intensity: 6 Abdomen: Pain Intensity: 5 Transfer of Care Handoff Completed per policy Notes Mental Status: alert / awake / arousable and participated in evaluation Patient Amnestic to Procedure: Yes Nausea / Vomiting: adequately controlled Pain: adequately controlled Airway Patency, RR, SpO2: stable & adequate BP & HR: stable & adequate Hydration State: stable & adequate Anesthetic Complications: no major complications apparent and Pt Satisfied with anesthetic care
[2020-07-31] MEDS: PANTOprazole 40 MG in SYRINGE 0 ML IV SCH ×2 (10:52→20:11)
[2020-07-31] MEDS: ENOXAPARIN INJ 40 MG/0.4 ML SYR SQ SCH (11:30)
--- NOTE | 2020-07-31 14:07 | Hospitalist Progress Note ---
Date of Service July 31, 2020 Assessment & Plan (1) Acute pancreatitis: Appears to be due to choledocholithiasis. Improving. Clear liquids allowed by GI service. IV fluids taper down. Serial lab studies. GI prophylaxis with IV Protonix (2) Choledocholithiasis: The patient is status post cholecystectomy. Common bile duct dilatation from stones noted on MRCP. GI consultation appreciated. ERCP completed today, July 31, with sphincterotomy, multiple stone removal, stent placement. Antibiotics recommended for 14 days. There was some evidence of cholangitis. (3) Transaminitis: Due to acute pancreatitis. Improving. Will follow (4) History of cholecystectomy: Aware GI prophylaxis: IV Protonix DVT prophylaxis: Lovenox subcu Disposition: Eventual discharge to home. Total antibiotic therapy for 14 days. Common bile duct stent will be removed at a later date in about 6 weeks. (5) UTI (urinary tract infection): Present on admission. Gram-negative's isolated. Final identification and sensitivities pending. Currently on Rocephin. Admission and Anticipated Discharge Date Admission Date: July 30, 2020 Subjective The patient was seen after the ERCP procedure. She is alert and oriented without complaint. She had sphincterotomy of the common bile duct with removal of multiple stones and placement of a stent. There was some evidence of cholangitis. GI service recommended antibiotic therapy for 14 days. She currently is on Rocephin, day 2. Urine culture also growing gram-negative rods yet to be identified. Lipase has decreased to 8500. GI service is allowing clear liquids. IV fluids taper down. Serial lab studies ordered. Review of Systems Review of Systems: Constitutional-no fever or chills ENT-no blurred vision, no double vision, no epistaxis, no sore throat Respiratory-no cough, no wheezing, no shortness of breath Cardiac-no palpitations, no chest pain, no syncope GI-no nausea, vomiting, diarrhea, melena, hematochezia -no urinary retention, no urinary incontinence, no dysuria, no hematuria Musculoskeletal-no joint pain, no muscle tenderness Skin-no bruising, no rashes, no pruritus Neuro-no isolated weakness, no paresthesia, no weakness Psych-no depression, no anxiety Physical Exam Physical Exam: General-alert and oriented x3, no fevers, no chills HEENT-head atraumatic and normocephalic, TMs intact bilaterally, pupils equal and reactive to light, extraocular muscles intact Neck-no lymphadenopathy or thyromegaly, trachea midline Chest-clear to auscultation percussion. No rales wheezing or rhonchi Cardiac-regular rate and rhythm, normal S1 and S2, no murmurs Abdomen-normal bowel sounds, nontender, no hepatosplenomegaly Extremities-no cyanosis, clubbing, or edema Neuro-cranial nerves II through XII intact, motor and sensory function within normal limits, strength symmetrical 5/5, no focal deficits Psych-normal affect, normal mood Results & Data Results & Data ([facility]) Vital Signs (Past 12 Hours) Vital Signs Temp Pulse Pulse Resp BP Pulse Ox 07/31/20 11:04 36.6 C 61 16 149/87 H 93 07/31/20 10:15 36.7 C 61 16 147/85 H 93 07/31/20 09:45 61 16 154/89 H 97 07/31/20 09:35 61 16 148/85 H 96 07/31/20 09:25 64 16 142/82 H 95 07/31/20 09:15 36.0 C L 66 16 124/77 94 07/31/20 08:10 36.7 C 64 16 150/89 H 95 07/31/20 07:43 36.5 C 62 18 147/89 H 95 07/31/20 07:20 58 L 07/31/20 04:00 36.6 C 60 18 136/86 94 07/31/20 03:11 57 L Laboratory Results 07/31/20 06:51 07/31/20 06:51 PG Care Time/CCT Total # of Minutes Spent Total Time Spent with Patient: Total time spent is greater than 50% in coordination of care (as documented) at patient's floor/unit and/or counseling patient: Coding Level of Care Code 90792 Subseq Hosp Care Lvl 3 Diagnoses Acute pancreatitis K85.90 Acute pancreatitis complication: unspecified Pancreatitis type: unspecified pancreatitis type Choledocholithiasis K80.50 Transaminitis R74.01 History of cholecystectomy Z90.49 UTI (urinary tract infection) N39.0 (1) Acute pancreatitis Acute pancreatitis complication: unspecified Pancreatitis type: unspecified pancreatitis type Qualified Code(s): K85.90 - Acute pancreatitis without necrosis or infection, unspecified
[2020-08-01] MEDS: HYDROmorphone INJ 1 MG/ML SYRINGE IV PRN ×2 (02:53→09:40)
[2020-08-01] MEDS: SODIUM CHLORIDE 0.9% 1000ML 1,000 ML IV SCH ×2 (02:56→08:44)
[2020-08-01] MEDS: cefTRIAXone SODIUM 2,000 MG in DEXTROSE 5% 50 ML IV SCH (06:48)
[2020-08-01 07:30] LABS: Basophils # (auto) 0.01 K/uL (0-0.2); Basophils % (auto) 0.1 %; Eosinophils % (auto) 1.3 %; Hematocrit (blood only) 34.4 % (37-47); Hemoglobin 11.9 g/dL (12.0-16.0); Immature Granulocytes # (auto) 0.02 K/uL (0.00-0.02); Immature Granulocytes % (auto) 0.3 %; Lymphocytes # (auto) 1.57 K/uL (1.2-3.4); Lymphocytes % (auto) 20.3 %; Mean Corpuscular Hemoglobin 34.1 pg (25-34); Mean Corpuscular Hgb Conc 34.6 g/dL (32-36); Mean Corpuscular Volume 98.6 fL (80-100); Mean Platelet Volume 9.9 fL (7.4-10.4); Monocytes # (auto) 0.56 K/uL (0.11-0.59); Monocytes % (auto) 7.2 %; Neutrophils # (auto) 5.48 K/uL (1.4-6.5); Neutrophils % (auto) 70.8 %; Platelet Count 249 K/uL (130-400); RDW Coefficient of Variation 13.5 % (11.5-14.5); RDW Standard Deviation 48.3 fL (36.4-46.3); Red Blood Count 3.49 M/uL (4.2-5.4); White Blood Count 7.74 K/uL (4.8-10.8)
[2020-08-01 07:57] LABS: Albumin Level 2.7 gm/dl (3.4-5.0); BUN Creatinine Ratio 15.9 (10-20); Calcium 7.6 mg/dl (8.5-10.1); Est GFR (African American) 120.3; Est GFR (Non-African American) 103.8; Potassium 3.1 mmol/L (3.5-5.1)
[2020-08-01 08:01] LABS: Albumin Globulin Ratio 0.9 (0.9-2); Bilirubin,Total 1.7 mg/dl (0.2-1); Globulin 3.1 gm/dl (2.5-4.0); Total Protein 5.8 gm/dl (6.4-8.2)
[2020-08-01] MEDS: ENOXAPARIN INJ 40 MG/0.4 ML SYR SQ SCH (08:40)
[2020-08-01] MEDS: PANTOprazole 40 MG in SYRINGE 0 ML IV SCH (08:40)
--- NOTE | 2020-08-01 10:19 | Gastroenterology Progress Note ---
Date of Service August 01, 2020 Assessment & Plan (1) Choledocholithiasis: s/p ERCP doing well advance diet to low fat ok to d/c when tolerant of diet LFT's this week with PCP Dr. Washburn will reach out to schedule ERCP repeat for stent removal Abx for additional 10 days, cipro twice daily is ok Admission and Anticipated Discharge Date Admission Date: July 30, 2020 Subjective Today patient status post ERCP Patient status post ERCP, without complaints today. Tolerating liquid diet without issue Physical Exam Constitutional: WD/WN, vitals as above Cardiovascular: RRR, no murmur, no edema Gastrointestinal (Abdomen): normal bowel sounds, soft, nontender, no hepatosplenomegaly Results & Data ([facility]) Vital Signs (Past 12 Hours) Vital Signs Temp Pulse Pulse Resp BP Pulse Ox 08/01/20 07:23 65 08/01/20 07:14 36.6 C 63 18 139/82 91 08/01/20 04:33 36.7 C 70 18 111/70 90 07/31/20 23:09 37 C 64 18 100/61 92
[2020-08-01] MEDS ORDERED: POTASSIUM PHOS 3 MMOL/1 ML INFUSION IV STA (11:30)
--- NOTE | 2020-08-01 11:41 | Discharge Summary ---
Date of Service August 01, 2020 Admission HPI Per Admitting Provider Ludy Solano is a 55-year-old female presenting with one day of severe abdominal pain. She was previously healthy and at 10AM this morning she developed constant progressively worsening 8-10/10 central abdominal pain that radiated to the back. The pain is described as gas like with spasms in her chest. she finally decided to come into the hospital when it was not improving and seemed to worsen when she tried to lay down for bed. She did vomit once at 8:30 PM prior to coming to the ER. She has previously had her gallbladder removed. No recent illness. No recent travel. No prior trauma. No pet scorpions, she has a dog and a horse at home. She had an episode in December with similar pain, wendy colored stool, and itchy skin that she saw her PCP for and had elevated liver enzymes at that time w/o elevation in her bilirubin. This episode resolved after a few days. She drinks 2 shots of fireball per week most recently on Monday night after a tough day at work. Never more than 2 shots and no more frequently lately. She does currently smoke 2 cigarettes a day and has been cutting back. 8 year smoking history. ED course: 2L fluid, current rate 125, Fentanyl for pain, Zofran for nausea Principal Diagnosis Pt is feeling much better. She is still a bit bloated, but better. She feels tender if she pushes on her abd, but no baseline abd pain now. She has been tolerating diet without issue. She did develop a migraine which she thinks might be related to pain med use. She generally take ibuprofen for this, but cannot due to restrictions s/p stenting/pancreatitis. She has been using ice and this helps. Also noted a slight rash along her groin this AM. She does not think it was there yesterday, but states she could not see that region well due to her bloating and pain at that time. It does not itch or burn. She has no prior hx of abx allergies, but is not sure if she has ever been on ceftriaxone in the past. She has used cipro in the past without issue though. Pt denies fever, SOB, chest pain, n/v/c/d, LE pain or swelling. Discharge Exam Constitutional WD/WN, vitals as above Eyes normal visual gomez by confrontation and + anicteric sclerae Neck normal visual inspection and trachea midline Respiratory normal respiratory effort, lungs clear to auscultation Cardiovascular Rate/Rhythm: regular rate and regular rhythm Gastrointestinal (Abdomen) Inspection/Auscultation: + abdomen distended Percussion/Palpation: + abdomen tender (mild epigastric) and abdomen soft Musculoskeletal Head/Neck/Chest: normocephalic and head atraumatic Skin Flat, dotted rash along skin folds of groin only, not noted on breasts or axilla Neurologic awake; not confused Speech / Cognition: normal speech Psychiatric A+Ox3, euthymic affect Discharge Data Allergies Allergy/AdvReac Type Severity Reaction Status Date / Time aspirin [From [facility]] Allergy Mild Rash Verified 07/29/20 23:10 citric acid Allergy Mild Rash Verified 07/29/20 23:10 [From [facility]] sodium bicarbonate Allergy Mild Rash Verified 07/29/20 23:10 [From [facility]] codeine AdvReac Severe PROJECTILE Verified 07/29/20 23:10 VOMITING sertraline [From Zoloft] AdvReac Intermediate PANIC Verified 07/29/20 23:10 ATTACKS Consultations 07/30/20 00:33 ED Decision to Admit Stat 07/30/20 04:04 Consult Gastroenterology Routine Procedures Performed Operation Date: 07/31/20 08:20 Actual Procedures p Endoscopic Retrograde Cholangiopancreatogram(Not Applicable) - Moni Washburn DO Ordered Studies 07/29/20 22:44 CT abd pelvis IV con only Urgent 07/30/20 02:20 MR MRCP Urgent 07/31/20 08:20 [place] ERCP biliary ductal Routine Hospital Course (1) Acute pancreatitis: Appears to be due to choledocholithiasis. Improving. Tolerating low fat diet today and would like to go home (2) Choledocholithiasis: The patient is status post cholecystectomy. Common bile duct dilatation from stones noted on MRCP. GI consultation appreciated. ERCP 07/31, with sphincterotomy, multiple stone removal, stent placement. Planning for cipro x10 days per GI Will need f/u in 6-8 weeks for stent d/c No NSAIDs x7 days (3) Transaminitis: Due to acute pancreatitis. Improving Repeat on 08/06 (4) History of cholecystectomy: Aware (5) UTI (urinary tract infection): Present on admission. Gram-neg isolated. Treated with rocephin during admission Noted with macrobid R, would avoid use in the future unless cx recs Cipro will cover both GI recs and UTI (6) Migraine: hx of same Feels possibly related to dilaudid use Ice is helping Requests PO meds on d/c, however all options have NSAIDs Advised to c/w ice/heat Total Time Total Time Spent Total Time Spent (In Minutes): >30 Total Time Includes: Examination of the Patient, Discharge Planning, Medication Reconciliation, Communication With Other Providers and Other Discharge Plan Discharge Items Patient Disposition: Home - Self-Care Reason For Visit: ACUTE PANCREATITIS Discharge Diagnosis: Acute pancreatitis Activity: Resume your previous activity Non-emergency contact: Primary Care Provider and Motor Coach Driver Call non-emergency contact if: you have any medication questions, your symptoms worsen, your pain is worsening and your pain is unusual for you Follow-up/Referrals: Chelsea Montelongo MD [Primary Care Provider] - Diet: Low Fat Addtl Attending Provider Instructions: Avoid heavy, greasy, fatty, high carb, and high sugar foods for the next week You should not take any NSAIDs (ibuprofen, tylenol, Aleve, aspirin, etc) for the next 7 days. If you are unsure if a medication is in this category, you can call any pharmacy to ask You will need to have labs checked on 08/06 Monitor your rash. You can take benadryl if it starts to itch. If it gets worse, you should be seen in the ED or by your PCP. Your stent will need removed in 6-[address] Washburn's office will arrange this. Pending Studies at Discharge: No Stand-Alone Forms: My [facility] [employer], Smoking Cessation Medications and DC Order Prescriptions: New ciprofloxacin HCl [Cipro] 500 mg tablet 500 mg PO BID Qty: 20 RF: 0 Continued hydrochlorothiazide 25 mg tablet 25 mg PO DAILY Qty: 30 RF: 5 Climara Pro 0.045-0.015 mg/24 hr patch weekly 1 patch transdermal .COMPLEX Qty: 4 RF: 12 esomeprazole magnesium [Nexium] 40 mg capsule,delayed release(DR/EC) 40 mg PO DAILY Qty: 30 RF: 2 multivitamin Tablet 1 tab PO DAILY RF: 0 Prempro 0.625-2.5 mg tablet 1 tab PO DAILY RF: 0 cholecalciferol (vitamin D3) [Vitamin D3] 125 mcg (5,000 unit) Tablet 250 mcg PO Q OTHER DAY RF: 0 Discharge Orders: Discharge Order (Routine); Ordered 08/01/20 Ordered By: Chandrika Hennessy Admission Data Admit Date/Time: 07/30/20 02:36 Attending Provider: Chandrika Hennessy Admit Provider: Inocencio Cameron Primary Care Provider: Chelsea Montelongo Other Providers: Lázaro Burgos ; Jorje Zhang Other Interventions: Discharge Summary Assessment (RN) Last Done: 08/01/20 12:14 Coding Level of Care Code D/C Day Management >30 mins Diagnoses Acute pancreatitis K85.90 Acute pancreatitis complication: unspecified Pancreatitis type: unspecified pancreatitis type Choledocholithiasis K80.50 Transaminitis R74.01 History of cholecystectomy Z90.49 UTI (urinary tract infection) N39.0 Migraine G43.909
[2020-08-01] MEDS ORDERED: POTASSIUM PHOSPHATE 9 MMOL in SODIUM CHLORIDE 0.9% 250 ML IV ONE (12:00)
[2020-08-01] MEDS ORDERED: POTASSIUM CHLORIDE CRTAB 20 MEQ TABCR PO ONE (12:45)
== END 2020-08-01 14:00 | disposition home or self-care (01) | DRG 444 ==
LOC: ED 22:37 → 2S 07-30 02:36 → SUATTDRO 07-30 02:36 → 2S 07-30 03:34 → 2N 07-30 14:10